=== PATIENT | male | born 1985 | race Caucasian/White ===

== ENCOUNTER 2018-12-04 19:02 | Emergency (ER) | payer OTHER ==
[2018-12-04] MEDS ORDERED: MORPHINE SULFATE 2 MG INJ IV ONE (19:22)
[2018-12-04] MEDS ORDERED: Zofran 4 MG/2 ML VIAL IV ONE (19:22)
[2018-12-04] MEDS ORDERED: PROTONIX 40 MG IV IV ONE ×2 (19:22→19:33)
[2018-12-04] MEDS ORDERED: TORAdol 30 mg Injection IV ONE (19:22)
[2018-12-04] MEDS ORDERED: Sodium Chloride 0.9% 1000 ML 1,000 ML IV STA ×2 (19:22→21:41)
[2018-12-04] MEDS ORDERED: TORAdol 30 mg Injection ONE (19:25)
[2018-12-04] MEDS ORDERED: Zofran 4 MG/2 ML VIAL ONE (19:25)
[2018-12-04] MEDS ORDERED: Sodium Chloride 0.9% 1000 ML 1,000 ML ONE ×2 (19:25→21:45)
[2018-12-04] MEDS ORDERED: MORPHINE SULFATE 2 MG INJ ONE (19:33)
[2018-12-04 19:35] LABS: BASOPHIL % 0.5 % (0.0-0.4); Basophil (Absolute #) 0.04 (0-0.4); Eosinophil % 1.7 % (0.00-5.0); Eosinophil (Absolute #) 0.14 (0-0.5); Granulocyte Absolute (ANC) 3.94 (1.4-6.9); Granulocytes % 48.4 % (36.0-66.0); Hematocrit 46.2 % (42-50); Hemoglobin 15.4 gm/dl (12.5-18.0); Lymphocyte (Absolute #) 3.37 (1.0-4.6); Lymphocytes % 41.5 % (24.0-44.0); Mean Cell Volume 85.9 fl (78-100); Mean Corpuscular Hemoglobin 28.6 pg (26-32); Mean Corpuscular Hgb Concent. 33.3 g/dl (32-36); Mean Platelet Volume 9.9 fl (6-9.5); Monocyte (Absolute #) 0.64 (0.0-1.3); Monocytes % 7.9 % (0.0-12.0); Platelet Count 274 K/mm3 (150-450); Red Blood Count 5.38 M/mm3 (4.1-5.6); Red Cell Distribution Width 13.6 % (11.5-14.0); White Blood Count 8.1 K/mm3 (4.0-10.5)
[2018-12-04 19:51] LABS: ALKALINE PHOSPHATASE 60 U/L (38-126); ANION GAP 15.6 MEQ/L (5-15); Appearance CLEAR (CLEAR); BLOOD UREA NITROGEN 15 mg/dL (9-20); Bacteria RARE /HPF (NEGATIVE); Bilirubin NEGATIVE (NEGATIVE); Blood MODERATE Ery/ul (0-5); CHLORIDE 102 mmol/L (98-107); Calcium 9.8 mg/dL (8.4-10.2); Carbon Dioxide 26 mmol/L (22-30); Creatinine 1 1.12 mg/dL (0.66-1.25); Glucose 95 mg/dL (74-106); Glucose NEGATIVE (NEGATIVE); Ketones MODERATE (NEGATIVE); LIPASE 218 U/L (23-300); Leukocyte Esterase NEGATIVE (NEGATIVE); Mucus MODERATE /HPF (NEGATIVE); Nitrite NEGATIVE (NEGATIVE); Potassium 3.8 mmol/L (3.5-5.1); Protein,Urine Dip 30 (Negative); SGOT/AST 22 U/L (17-59); SGPT/ALT 23 U/L (0-50); SODIUM 140 mmol/L (137-145); Specific Gravity 1.026 (1.005-1.025); Total Protein 7.9 g/dL (6.3-8.2); Urobilinogen 2 mg/dL (0-1)
--- NOTE | 2018-12-04 21:50 | ERPHSYRPT ---
- History of Present Illness Source: patient, family Exam Limitations: no limitations Patient Subjective Stated Complaint: pt is alert and oriented. pt is ambulatory with a steady gait. pt comes in with complaint of right flank pain that radiates around the right side of his abdomen to his epigastric region. pt states that the pain is colicky in nature. pt states his pain appeared suddenly. pt states he's having some difficulty urinating but denies hematuria, frequency. pt is also nauseous but has not vomited. Triage Nursing Assessment: see above Physician History: Pt is a 33 y/o male that presented to the ED with severe pain in the R flank and RLQ. Pt states, that he feels "something is ripping inside". He is vomiting all through the PE, and states, his pain is severe. Pt denies chest pain or palpitations. No SOB or cough. Pt denies dysuria, frequency and urgency. Timing/Duration: today Activites at Onset: none Quality: cramping, sharpness, stabbing Onset Location: RLQ, right flank Pain Radiation: RLQ, right flank Severity of Pain-Max: severe Severity of Pain-Current: severe Modifying Factors: Improves With: analgesics Associated Symptoms: nausea, vomiting Allergies/Adverse Reactions: No Known Drug Allergies Allergy (Unverified 10/25/13 18:24) Home Medications: Dextroamphetamine/Amphetamine [Dextroamp-Amphetamin 20 mg Tab] 20 mg PO DAILY [History] Hx Tetanus, Diphtheria Vaccination/Date Given: Yes Hx Influenza Vaccination/Date Given: Yes Hx Pneumococcal Vaccination/Date Given: No Immunizations Up to Date: Yes - Past Medical History Pertinent Past Medical History: No Neurological History: No Pertinent History Cardiac History: No Pertinent History Respiratory History: No Pertinent History Endocrine Medical History: No Pertinent History Musculoskeletal History: No Pertinent History GI Medical History: No Pertinent History History: No Pertinent History Male Reproductive Disorders: No Pertinent History - Past Surgical History Past Surgical History: Yes Neuro Surgical History: No Pertinent History Cardiac: No Pertinent History Respiratory: No Pertinent History Gastrointestinal: Hernia Repair Genitourinary: No Pertinent History Musculoskeletal: No Pertinent History Male Surgical History: Vasectomy - Social History Smoking Status: Former smoker Exposure to second hand smoke: No Drug Use: none Patient Lives Alone: No - Review of Systems Constitutional: No Fever, No Chills Eyes: No Symptoms Ears, Nose, & Throat: No Symptoms Respiratory: No Cough, No Dyspnea Cardiac: No Chest Pain, No Edema, No Syncope Abdominal/Gastrointestinal: Abdominal Pain (RLQ and right flank) Genitourinary Symptoms: No Dysuria Musculoskeletal: No Back Pain, No Neck Pain Neurological: No Dizziness, No Focal Weakness, No Sensory Changes - Nursing Vital Signs Nursing Vital Signs: Initial Vital Signs Temperature 97.6 F 12/04/18 19:11 Pulse Rate 77 12/04/18 19:11 Respiratory Rate 16 12/04/18 19:11 Blood Pressure 142/97 12/04/18 19:11 O2 Sat by Pulse Oximetry 100 12/04/18 19:11 Pain Scale Pain Intensity 6 - Physical Exam General Appearance: severe distress Eye Exam: PERRL/EOMI Ears, Nose, Throat Exam: pharynx normal, moist mucous membranes Neck Exam: normal inspection, supple Respiratory Exam: normal breath sounds, lungs clear Cardiovascular Exam: regular rate/rhythm, No edema Gastrointestinal/Abdomen Exam: soft, tenderness (RLQ and R flank) Extremity Exam: normal inspection, normal range of motion, No pedal edema Neurologic Exam: alert, oriented x 3, cooperative, sensation nml, No motor deficits SpO2: 100 - Course Nursing assessment & vital signs reviewed: Yes - CT Exams Abdomen/Pelvis CT Interpretation: Tele-radiologist Report (2mm stone in the bladder. R hydronephrosis) Ordered Tests: Active Orders 24 hr Category Date Time Status ABDOMEN AND PELVIS W CONTRAST [CT] Stat Exams 12/04/18 19:23 Taken CBC W DIFF Stat Lab 12/04/18 19:10 Completed CMP Stat Lab 12/04/18 19:10 Completed LIPASE Stat Lab 12/04/18 19:10 Completed Lactic Acid Stat Lab 12/04/18 19:45 Completed TROPONIN Q3H Lab 12/04/18 19:10 Completed TROPONIN Q3H Lab 12/05/18 01:30 Ordered TROPONIN Q3H Lab 12/05/18 04:30 Ordered TROPONIN Q3H Lab 12/05/18 07:30 Ordered UA W/RFX UR CULTURE Stat Lab 12/04/18 19:10 Completed Medication Summary Discontinued Medications Generic Name Dose Route Start Last Admin Trade Name Freq PRN Reason Stop Dose Admin Sodium Chloride 1,000 mls @ 999 mls/hr 12/04/18 19:22 12/04/18 21:30 Sodium Chloride 0.9% 1000 Ml IV 12/04/18 20:22 Infused .Q1H1M STA Infusion Sodium Chloride Confirm 12/04/18 19:25 Sodium Chloride 0.9% 1000 Ml Administered 12/04/18 19:26 Dose 1,000 mls @ ud .ROUTE .STK-MED ONE Sodium Chloride 1,000 mls @ 999 mls/hr 12/04/18 21:41 12/04/18 23:14 Sodium Chloride 0.9% 1000 Ml IV 12/04/18 22:41 Infused .Q1H1M STA Infusion Sodium Chloride Confirm 12/04/18 21:45 Sodium Chloride 0.9% 1000 Ml Administered 12/04/18 21:46 Dose 1,000 mls @ ud .ROUTE .STK-MED ONE Ketorolac Tromethamine 30 mg 12/04/18 19:22 12/04/18 19:31 Toradol 30 Mg Injection IV 12/04/18 19:23 30 mg STAT ONE Administration Ketorolac Tromethamine Confirm 12/04/18 19:25 Toradol 30 Mg Injection Administered 12/04/18 19:26 Dose 30 mg .ROUTE .STK-MED ONE Morphine Sulfate 2 mg 12/04/18 19:22 12/04/18 19:40 Morphine Sulfate 2 Mg Inj IV 12/04/18 19:23 2 mg STAT ONE Administration Morphine Sulfate Confirm 12/04/18 19:33 Morphine Sulfate 2 Mg Inj Administered 12/04/18 19:34 Dose 2 mg .ROUTE .STK-MED ONE Ondansetron HCl 4 mg 12/04/18 19:22 12/04/18 19:31 Zofran 4 Mg/2 Ml Vial IV 12/04/18 19:23 4 mg STAT ONE Administration Ondansetron HCl Confirm 12/04/18 19:25 Zofran 4 Mg/2 Ml Vial Administered 12/04/18 19:26 Dose 4 mg .ROUTE .STK-MED ONE Pantoprazole Sodium 40 mg 12/04/18 19:22 12/04/18 19:40 Protonix 40 Mg Iv IV 12/04/18 19:23 40 mg STAT ONE Administration Pantoprazole Sodium Confirm 12/04/18 19:33 Protonix 40 Mg Iv Administered 12/04/18 19:34 Dose 40 mg IV .STK-MED ONE Lab/Rad Data: Laboratory Result Diagrams 12/04/18 19:10 12/04/18 19:10 Laboratory Results 12/04/18 12/04/18 12/04/18 Range/Units 19:45 19:10 19:10 WBC (4.0-10.5) K/mm3 RBC (4.1-5.6) M/mm3 Hgb (12.5-18.0) gm/dl Hct (42-50) % MCV (78-100) fl MCH (26-32) pg MCHC (32-36) g/dl RDW (11.5-14.0) % Plt Count (150-450) K/mm3 MPV (6-9.5) fl Gran % (36.0-66.0) % Eos # (Auto) (0-0.5) Absolute Lymphs (auto) (1.0-4.6) Absolute Monos (auto) (0.0-1.3) Lymphocytes % (24.0-44.0) % Monocytes % (0.0-12.0) % Eosinophils % (0.00-5.0) % Basophils % (0.0-0.4) % Absolute Granulocytes (1.4-6.9) Basophils # (0-0.4) Sodium (137-145) mmol/L Potassium (3.5-5.1) mmol/L Chloride (98-107) mmol/L Carbon Dioxide (22-30) mmol/L Anion Gap (5-15) MEQ/L BUN (9-20) mg/dL Creatinine (0.66-1.25) mg/dL Estimated GFR ML/MIN Glucose (74-106) mg/dL Lactic Acid 1.7 (0.4-2.0) Calcium (8.4-10.2) mg/dL Total Bilirubin (0.2-1.3) mg/dL AST (17-59) U/L ALT (0-50) U/L Alkaline Phosphatase (38-126) U/L Troponin I < 0.012 (0.000-0.034) ng/mL Serum Total Protein (6.3-8.2) g/dL Albumin (3.5-5.0) g/dL Lipase (23-300) U/L Urine Color YELLOW (YELLOW) Urine Appearance CLEAR (CLEAR) Urine pH 6.0 (5-6) Ur Specific [place] 1.026 (1.005-1.025) Urine Protein 30 (Negative) Urine Ketones MODERATE (NEGATIVE) Urine Blood MODERATE (0-5) Macario/ul Urine Nitrite NEGATIVE (NEGATIVE) Urine Bilirubin NEGATIVE (NEGATIVE) Urine Urobilinogen 2 (0-1) mg/dL Ur Leukocyte Esterase NEGATIVE (NEGATIVE) Urine WBC (Auto) NONE (0-5) /HPF Urine RBC (Auto) 11-15 (0-2) /HPF U Epithel Cells (Auto) NONE (FEW) /HPF Urine Bacteria (Auto) RARE (NEGATIVE) /HPF Other Casts (Auto) NEGATIVE (NEGATIVE) /LPF Urine Mucus (Auto) MODERATE (NEGATIVE) /HPF Urine Culture Reflexed NO (NO) Urine Glucose NEGATIVE (NEGATIVE) mg/dL 12/04/18 12/04/18 Range/Units 19:10 19:10 WBC 8.1 (4.0-10.5) K/mm3 RBC 5.38 (4.1-5.6) M/mm3 Hgb 15.4 (12.5-18.0) gm/dl Hct 46.2 (42-50) % MCV 85.9 (78-100) fl MCH 28.6 (26-32) pg MCHC 33.3 (32-36) g/dl RDW 13.6 (11.5-14.0) % Plt Count 274 (150-450) K/mm3 MPV 9.9 H (6-9.5) fl Gran % 48.4 (36.0-66.0) % Eos # (Auto) 0.14 (0-0.5) Absolute Lymphs (auto) 3.37 (1.0-4.6) Absolute Monos (auto) 0.64 (0.0-1.3) Lymphocytes % 41.5 (24.0-44.0) % Monocytes % 7.9 (0.0-12.0) % Eosinophils % 1.7 (0.00-5.0) % Basophils % 0.5 (0.0-0.4) % Absolute Granulocytes 3.94 (1.4-6.9) Basophils # 0.04 (0-0.4) Sodium 140 (137-145) mmol/L Potassium 3.8 (3.5-5.1) mmol/L Chloride 102 (98-107) mmol/L Carbon Dioxide 26 (22-30) mmol/L Anion Gap 15.6 H (5-15) MEQ/L BUN 15 (9-20) mg/dL Creatinine 1.12 (0.66-1.25) mg/dL Estimated GFR > 60.0 ML/MIN Glucose 95 (74-106) mg/dL Lactic Acid (0.4-2.0) Calcium 9.8 (8.4-10.2) mg/dL Total Bilirubin 0.60 (0.2-1.3) mg/dL AST 22 (17-59) U/L ALT 23 (0-50) U/L Alkaline Phosphatase 60 (38-126) U/L Troponin I (0.000-0.034) ng/mL Serum Total Protein 7.9 (6.3-8.2) g/dL Albumin 5.0 (3.5-5.0) g/dL Lipase 218 (23-300) U/L Urine Color (YELLOW) Urine Appearance (CLEAR) Urine pH (5-6) Ur Specific [place] (1.005-1.025) Urine Protein (Negative) Urine Ketones (NEGATIVE) Urine Blood (0-5) [place]/ul Urine Nitrite (NEGATIVE) Urine Bilirubin (NEGATIVE) Urine Urobilinogen (0-1) mg/dL Ur Leukocyte Esterase (NEGATIVE) Urine WBC (Auto) (0-5) /HPF Urine RBC (Auto) (0-2) /HPF U Epithel Cells (Auto) (FEW) /HPF Urine Bacteria (Auto) (NEGATIVE) /HPF Other Casts (Auto) (NEGATIVE) /LPF Urine Mucus (Auto) (NEGATIVE) /HPF Urine Culture Reflexed (NO) Urine Glucose (NEGATIVE) mg/dL - Progress Progress: improved Progress Note: 12/04/18 21:53 Pt presented with extensive pain and vomiting. He had labs and CT that showed 2mm stone in the bladder, and R hydronephrosis. Pt did get Morphine and Toradol , and Zofran for nausea. He is comfortable. 2 lit of fluids were given to him. Pt is feeling well, and his pain is gone. He feels that he is ready for d /c. Pt should drink plenty of fluid and f/u with his PCP next week. 12/04/18 23:22 Will see patient in: office Counseled pt/family regarding: need for follow-up - Departure Time of Disposition: 23:24 Departure Disposition: Home Clinical Impression: Nephrolithiasis Condition: Stable Critical Care Time: No Referrals: LEONIDES PAEZ MD [Primary Care Provider] - Additional Instructions: F/U with PCP next week. Increase fluid intake.
[2018-12-04 23:14] VITALS: BP 104/67
[2018-12-04 23:36] VITALS: PULSE 93; O2SAT 98
--- NOTE | 2018-12-05 07:34 | XRAY ---
Indication: Right flank and epigastric pain. Dysuria. Multiple contiguous axial images obtained through the abdomen and pelvis using 80 cc Isovue 370 contrast only. Comparison: None Lung bases are clear. Heart is not enlarged. Small hiatal hernia. Noncontrasted stomach and bowel loops appear nonobstructed. Normal appendix. Mild diffuse scattered colonic fecal debris throughout. There is a 2-3 mm calculus in the posterior right urinary bladder. Right ureter is slightly prominent with minimal hydronephrosis presumed from recent passage of said calculus. Remaining liver, gallbladder, pancreas, spleen, adrenal glands, kidneys, left ureter, bladder, and aorta appear unremarkable. No pathologic retroperitoneal lymphadenopathy. Osseous structures intact. No ventral or inguinal hernias. Impression: 1. 2-3 mm right bladder calculus with prominent right ureter and minimal hydronephrosis consistent with recent passage of calculus. 2. Incidental fecal stasis without obstruction and small hiatal hernia. Comment: Preliminary interpretation was made by [facility]. No critical discrepancy. CTDI 20.45
== END 2018-12-04 23:41 | disposition home or self-care (01) ==
LOC: ED 19:02
DX: N20.0 Calculus of kidney (principal)
CPT/HCPCS: 36000; 36415; 74177; 80053; 81001; 83605; 83690; 84484; 85025; 96360; 96361; 96374; 96375; 99285; J1885; J2270; J2405